=== PATIENT | female | born 1945 | race African-American/Black ===

== ENCOUNTER → 2018-06-20 12:40 | Outpatient (CLI) | payer OTHER, SELFPAY ==
--- NOTE | 2018-06-20 | DI.MG.S_ITS ---
BILATERAL DIGITAL SCREENING MAMMOGRAM 3D/2D WITH CAD: 06/20/2018 CLINICAL: Routine screening. Baseline exam. Comparison is made to exam dated: 07/05/2007 [facility]. The tissue of both breasts is predominantly fatty. Current study was also evaluated with a Computer Aided Detection (CAD) system. No significant masses, calcifications, or other findings are seen in either breast. There has been no significant interval change. IMPRESSION: NEGATIVE There is no mammographic evidence of malignancy. A 1 year screening mammogram is recommended. This exam was interpreted at Station ID: [id number]. NOTE: For mammograms, a report in lay terms will be sent to the patient. Approximately 15% of breast malignancies will not be visualized mammographically. In the management of a palpable breast mass, a negative mammogram must not discourage biopsy of a clinically suspicious lesion. Electronically Signed By: Candice brown/puma:06/23/2018 09:22:38 letter sent: Normal Exam ACR BI-RADS Category 1: Negative 3341F
== END ==
PROVIDERS: Family Provider Internal Medicine; PCP Internal Medicine; Visit Provider Internal Medicine
DX: Z12.31 Encounter for screening mammogram for malignant neoplasm of breast (principal); M85.851 Other specified disorders of bone density and structure, right thigh; Z78.0 Asymptomatic menopausal state; E11.9 Type 2 diabetes mellitus without complications
CPT/HCPCS: 77063; 77067; 77080

== ENCOUNTER 2018-09-06 16:55 | Emergency (ER) | payer OTHER, SELFPAY ==
[2018-09-06 17:05] VITALS: BP 128/73; PULSE 94; RESP 14; TEMP 36.7; O2SAT 99; BMI 27.4
--- NOTE | 2018-09-06 17:09 | DI.RAD.S_ITS ---
PROCEDURE: XR RIBS LT MIN 3V W CXR1V INDICATIONS: left rib pain after fall TECHNIQUE: 3 views of the left ribs were acquired, along with a single view chest. COMPARISON: None. FINDINGS: Surgical changes and devices: Surgical clips are noted in the left upper abdomen. A surgical suture line is also noted in the left upper abdomen. Bones and chest wall: Possible nondisplaced acute fractures involving the anterolateral margins of the left ninth, and 10th ribs. No suspicious bony lesions. Overlying soft tissues appear unremarkable. Lungs and pleura: No pleural effusions or pneumothorax. Lungs appear clear. Mediastinum: Mediastinal contours appear normal. Heart size is normal. IMPRESSION: 1. Chest without acute cardiopulmonary abnormalities. 2. Possible nondisplaced fractures involving the anterolateral margin of the left ninth and 10th ribs. Dictated by: Vitaliy Pak M.D. on 09/06/2018 at 18:00 Approved by: Vitaliy Pak M.D. on 09/06/2018 at 18:03
--- NOTE | 2018-09-06 20:57 | ED.SOB ---
HPI - SOB/Dyspnea General Chief Complaint: Shortness of Breath/Dyspnea Stated Complaint: Fall this morning, left rib pain, hurts to breath Time Seen by Provider: 09/06/18 20:16 Related Data Home Medications Medication Instructions Recorded Confirmed lisinopril 40 mg PO QDAY #0 12/15/09 aspirin 81 mg PO QDAY #0 12/11/15 escitalopram oxalate 20 mg PO QDAY #30 tab 12/11/15 lamotrigine 100 mg PO QDAY #0 12/11/15 trazodone 50 mg PO HSP #0 12/11/15 amlodipine 10 mg PO HS #0 08/07/17 cholecalciferol (vitamin D3) 2 cap PO QDAY #0 08/07/17 [Vitamin D3] lorazepam 1 tab PO HSP PRN #0 08/07/17 multivitamin [Multiple Vitamins] 1 tab PO QDAY #0 08/07/17 nystatin [Nystop] 100,000 unit TOPICAL BID #0 08/07/17 sennosides [senna] 8.6 mg PO PRN #0 08/07/17 tobramycin-dexamethasone [TobraDex] 1 drp OPHTH Q6H #0 08/07/17 Allergies Allergy/AdvReac Type Severity Reaction Status Date / Time No Known Drug Allergies Allergy Verified 09/06/18 17:04 [facility] Medical History (Updated 09/06/18 @ 20:58 by Patti Dawson PA-C) Cervical spinal stenosis (Chronic) Cervical radiculopathy (Acute) Social History Smoking Status: Unknown if ever smoked Social History Smoking Status: Unknown if ever smoked Exam Initial Vital Signs Initial Vital Signs: Vital Signs Temperature 98.1 F 09/06/18 17:05 Pulse Rate 94 H 09/06/18 17:05 Respiratory Rate 14 09/06/18 17:05 Blood Pressure 128/73 09/06/18 17:05 Pulse Oximetry 99 09/06/18 17:05 Course Orders Ordered: ED Orders 09/06/18 17:09 XR ribs LT min 3V w CXR1V Stat Vital Signs - 8 hr 09/06/18 17:05 Temperature 98.1 F Pulse Rate 94 H Respiratory Rate 14 Blood Pressure 128/73 Pulse Oximetry 99 Discharge Plan Departure Prescriptions: No Action lisinopril 40 MG tablet 40 mg PO QDAY Qty: 0 RF: 0 lamotrigine 200 MG tablet 100 mg PO QDAY Qty: 0 RF: 0 trazodone 50 MG tablet 50 mg PO HSP Qty: 0 RF: 0 aspirin 81 MG tablet,delayed release (DR/EC) 81 mg PO QDAY Qty: 0 RF: 0 escitalopram oxalate 20 MG tablet 20 mg PO QDAY Qty: 30 RF: 0 amlodipine 10 MG tablet 10 mg PO HS Qty: 0 RF: 0 multivitamin [Multiple Vitamins] 1 EACH tablet 1 tab PO QDAY Qty: 0 RF: 0 lorazepam 0.5 MG tablet 1 tab PO HSP PRNQty: 0 RF: 0 nystatin [Nystop] 30 GM powder 100,000 unit Topical BID Qty: 0 RF: 0 sennosides [senna] 8.6 MG tablet 8.6 mg PO PRN Qty: 0 RF: 0 cholecalciferol (vitamin D3) [Vitamin D3] 2,000 UNIT capsule 2 cap PO QDAY Qty: 0 RF: 0 tobramycin-dexamethasone [TobraDex] 5 ML drops,suspension 1 drp OPHTH Q6H Qty: 0 RF: 0
--- NOTE | 2018-09-06 21:15 | ED_ITS ---
HPI - SOB/Dyspnea General Chief Complaint: Shortness of Breath/Dyspnea Stated Complaint: Fall this morning, left rib pain, hurts to breath Time Seen by Provider: 09/06/18 20:16 Source: patient and family Mode of arrival: ambulatory Limitations: no limitations History of Present Illness 73-year-old female here for evaluation of left-sided rib pain. She states that earlier today she was sitting on the toilet and had an event where she fell off the toilet hitting her left side. She states that throughout the day her left side is becoming more more painful. She states she has been having these episodes where she passes out for some time now. She has seen her primary provider. She is currently on Keppra for concern that these are seizures. She is not currently driving. Her did not witness this event today however has seen these events in the past. She he states that she starts to smack her lips and then becomes unconscious for a short period of time. Patient states that the episode that happened to her today is very similar to the episodes that have been happening to her for some time now. She reports no other injuries from the event. Related Data Home Medications Medication Instructions Recorded Confirmed lisinopril 40 mg PO QDAY #0 12/15/09 aspirin 81 mg PO QDAY #0 12/11/15 escitalopram oxalate 20 mg PO QDAY #30 tab 12/11/15 lamotrigine 100 mg PO QDAY #0 12/11/15 trazodone 50 mg PO HSP #0 12/11/15 amlodipine 10 mg PO HS #0 08/07/17 cholecalciferol (vitamin D3) 2 cap PO QDAY #0 08/07/17 [Vitamin D3] lorazepam 1 tab PO HSP PRN #0 08/07/17 multivitamin [Multiple Vitamins] 1 tab PO QDAY #0 08/07/17 nystatin [Nystop] 100,000 unit TOPICAL BID #0 08/07/17 sennosides [senna] 8.6 mg PO PRN #0 08/07/17 tobramycin-dexamethasone [TobraDex] 1 drp OPHTH Q6H #0 08/07/17 Allergies Allergy/AdvReac Type Severity Reaction Status Date / Time No Known Drug Allergies Allergy Verified 09/06/18 17:04 Review of Systems Constitutional Denies headache(s) ENT Ears, Nose, Mouth, and Throat: Denies vertigo, Denies dizziness and Denies headache(s) Cardiovascular Reports chest pain (Left-sided ribs) Respiratory Reports pain on inspiration Gastrointestinal Gastrointestinal: Denies abdominal pain Musculoskeletal Denies myalgias and Denies arthralgias Integumentary/Breasts Denies rash Neurologic Denies vertigo, Denies dizziness and Denies headache(s) Hematologic/Lymphatic Denies easy bleeding and Denies easy bruising COUNT INCLUDES THE [facility] Medical History (Updated 09/07/18 @ 01:16 by Trell Garcia DO) Cervical spinal stenosis (Chronic) Cervical radiculopathy (Acute) Seizure-like activity (Acute) Social History Smoking Status: Unknown if ever smoked Social History Smoking Status: Unknown if ever smoked Exam Initial Vital Signs Initial Vital Signs: Vital Signs Temperature 98.1 F 09/06/18 17:05 Pulse Rate 94 H 09/06/18 17:05 Respiratory Rate 14 09/06/18 17:05 Blood Pressure 128/73 09/06/18 17:05 Pulse Oximetry 99 09/06/18 17:05 Const General: cooperative, comfortable, well developed, well groomed and No acute distress Orientation: alert, awake and oriented x3 [facility] Head: normal to inspection, normocephalic, atraumatic, No abrasion, No contusion, No laceration, No scalp lesion and No scalp tenderness Ears: hearing grossly normal bilaterally Nose: external nose normal Face and sinus: normal facial exam Chest Chest: tenderness (Left-sided chest wall) Resp Effort & Inspection: normal respiratory effort Auscultation: clear to auscultation bilaterally GI Inspection: non-distended Palpation: soft and No firm Back/Spine/Pelvis Cervical Spine: cervical muscular tenderness, No cervical spinal tenderness and No step off deformity Thoracic/Lumbar Spine: No thoracic spinal tenderness and No lumbar spinal tenderness Skin Lesions: no lesions Rashes: no rashes Neuro General: alert, awake and oriented x3 Cognition: normal cognition Speech: speech normal Extrem General: normal to inspection and capillary refill normal Course Orders Ordered: ED Orders 09/06/18 17:09 XR ribs LT min 3V w CXR1V Stat Discontinued Medications Acetaminophen/Codeine Phosphate (Tylenol #3) 1 tab PO NOW ONE Stop: 09/06/18 21:42 Last Admin: 09/06/18 22:11 Dose: Not Given Acetaminophen/Codeine Phosphate (Tylenol #3 Prepack) 1 bottle MISC SEEINSTR ONE Stop: 09/06/18 22:01 Last Admin: 09/06/18 22:04 Dose: 1 bottle Vital Signs - 8 hr 09/06/18 21:28 Temperature 97.4 F L Pulse Rate 76 Respiratory Rate 18 Blood Pressure [Right Arm] 165/76 H Pulse Oximetry 100 MDM - SOB/Dyspnea Imaging Data Rib x-rays: Radiologist's impression: [address] [id number] XRay Report Signed Patient: George Stratton GMR#: [id number] : 5Acct:[id number] Age/Sex: 73 / FDate of Service: 09/06/18 Loc: ED Accession Number: [id number] Procedure: XR ribs LT min 3V w CXR1V Ordering Provider: Carmella Alanis D.O. PROCEDURE: XR RIBS LT MIN 3V W CXR1V INDICATIONS: left rib pain after fall TECHNIQUE: 3 views of the left ribs were acquired, along with a single view chest. COMPARISON: None. FINDINGS: Surgical changes and devices: Surgical clips are noted in the left upper abdomen. A surgical suture line is also noted in the left upper abdomen. Bones and chest wall: Possible nondisplaced acute fractures involving the anterolateral margins of the left ninth, and 10th ribs. No suspicious bony lesions. Overlying soft tissues appear unremarkable. Lungs and pleura: No pleural effusions or pneumothorax. Lungs appear clear. Mediastinum: Mediastinal contours appear normal. Heart size is normal. IMPRESSION: 1. Chest without acute cardiopulmonary abnormalities. 2. Possible nondisplaced fractures involving the anterolateral margin of the left ninth and 10th ribs. Dictated by: Vitaliy Pak M.D. on 09/06/2018 at 18:00 Approved by: Vitaliy Pak M.D. on 09/06/2018 at 18:03 [facility] Narrative Medical decision making narrative: Patient with left-sided rib fractures. Not in any respiratory distress. No underlying lung pathology. She does have left- sided paraspinal neck tenderness but no midline tenderness. Hold on further radiologic studies for now. The episode that she has today she has been seen for in the past. It seems very similar to her prior events which have been diagnosed as seizure-like activity and for which she is on seizure medications. She is not currently driving. Patient initially declined the offer for any pain medication over will send home with a prepack for Tylenol number threes. We did discuss the importance of her avoiding falling. We did discuss the importance of her taking big deep breaths to avoid pneumonia. She was given return precautions and follow-up instructions. Both her and her who is at bedside expressed understanding and agreement this plan. Discharge Plan Departure Patient Disposition: Home Clinical Impression: Multiple rib fractures Qualifiers: Encounter type: initial encounter Fracture type: closed Laterality: left Qualified Code(s): S22.42XA - Multiple fractures of ribs, left side, initial encounter for closed fracture Discharge Date/Time: 09/06/18 22:12 Interventions: ED Discharge Assessment Last Done: 09/06/18 22:11 Instructions: DI for Rib Fracture Activity Restrictions/Additional Instructions: You need to use the pain medication as needed so that you can take the big deep breath like we discussed. Continue all of her medications as directed. On Saturday morning contact her primary doctor for a follow-up. Return to the emergency department for any new or worsening symptoms Prescriptions: No Action lisinopril 40 MG tablet 40 mg PO QDAY Qty: 0 RF: 0 lamotrigine 200 MG tablet 100 mg PO QDAY Qty: 0 RF: 0 trazodone 50 MG tablet 50 mg PO HSP Qty: 0 RF: 0 aspirin 81 MG tablet,delayed release (DR/EC) 81 mg PO QDAY Qty: 0 RF: 0 escitalopram oxalate 20 MG tablet 20 mg PO QDAY Qty: 30 RF: 0 amlodipine 10 MG tablet 10 mg PO HS Qty: 0 RF: 0 multivitamin [Multiple Vitamins] 1 EACH tablet 1 tab PO QDAY Qty: 0 RF: 0 lorazepam 0.5 MG tablet 1 tab PO HSP PRNQty: 0 RF: 0 nystatin [Nystop] 30 GM powder 100,000 unit Topical BID Qty: 0 RF: 0 sennosides [senna] 8.6 MG tablet 8.6 mg PO PRN Qty: 0 RF: 0 cholecalciferol (vitamin D3) [Vitamin D3] 2,000 UNIT capsule 2 cap PO QDAY Qty: 0 RF: 0 tobramycin-dexamethasone [TobraDex] 5 ML drops,suspension 1 drp OPHTH Q6H Qty: 0 RF: 0 Referrals: Solis Quan MD [Primary Care Provider] -
[2018-09-06 21:28] VITALS: BP 165/76; PULSE 76; RESP 18; TEMP 36.3; O2SAT 100
[2018-09-06] MEDS: CODEINE/APAP 30/300 PREPACK 1 BOTTLE MISC (22:04)
== END 2018-09-06 22:12 | disposition home or self-care (01) ==
PROVIDERS: Emergency Provider Emergency Medicine; PCP Internal Medicine
DX: S22.42XA Multiple fractures of ribs, left side, initial encounter for closed fracture (principal); R55 Syncope and collapse; W18.12XA Fall from or off toilet with subsequent striking against object, initial encounter
CPT/HCPCS: 71101; 99283

== ENCOUNTER → 2019-05-26 10:58 | Outpatient (CLI) | payer OTHER, SELFPAY ==
--- NOTE | 2019-05-26 11:01 | DI.RAD.S_ITS ---
PROCEDURE: XR SHOULDER LT MIN 2V INDICATIONS: l shoulder pain from fall on 05/20/2019 TECHNIQUE: 3 views of the shoulder were acquired. COMPARISON: [facility], , SHOULDER MINIMUM 2 VIEW LEFT, 08/07/2011, 11:56. FINDINGS: Bones: No fractures or dislocations. Mild to moderate acromioclavicular joint and glenohumeral joint osteoarthritic changes are seen. No suspicious bony lesions. Visualized ribs appear intact. Soft tissues: No suspicious soft tissue calcifications. IMPRESSION: Mild to moderate left shoulder joint osteoarthritis. No acute fracture or dislocation. Dictated by: Ramo Stephen M.D. on 05/26/2019 at 11:39 Approved by: Ramo Stephen M.D. on 05/26/2019 at 11:41
== END ==
PROVIDERS: Family Provider Internal Medicine; PCP Internal Medicine; Visit Provider Physician Assistant
DX: M25.512 Pain in left shoulder (principal); M19.012 Primary osteoarthritis, left shoulder
CPT/HCPCS: 73030

== ENCOUNTER → 2019-06-12 10:15 | Outpatient (CLI) | payer OTHER, SELFPAY ==
--- NOTE | 2019-06-12 10:17 | DI.RAD.S_ITS ---
PROCEDURE: XR HIP W PEL IF DONE RT 2V INDICATIONS: pain to R buttock/groin post fall, r/o pelvic fx TECHNIQUE: AP pelvis with lateral view(s) of the right hip(s). COMPARISON: None. FINDINGS: Bones: No fractures or dislocations. Pelvic ring appears intact. No suspicious bony lesions. Age-appropriate lower lumbar spine degenerative changes are noted. There is moderate superior joint space narrowing seen of the right hip, with associated remodeling changes with subchondral sclerosis and osteophyte formation. Milder degenerative changes are seen of the left. Soft tissues: The visualized bowel gas pattern is normal. No suspicious soft tissue calcifications. Pelvic soft tissue postoperative changes are seen. IMPRESSION: No displaced fractures are seen on these plain films. If there is focal tenderness, or other clinical concern for a fracture not seen on these images in this patient with a given history of trauma, please consider a dedicated CT or a short-term followup plain film series (in 1-2 weeks) for further evaluation. Dictated by: Tyree Billy M.D. on 06/12/2019 at 10:05 Approved by: Tyree Billy M.D. on 06/12/2019 at 10:06
--- NOTE | 2019-06-12 10:17 | DI.RAD.S_ITS ---
PROCEDURE: XR LUMBAR SPINE 2-3V INDICATIONS: pain to R buttock/groin post fall, r/o pelvic fx TECHNIQUE: 3 views of the lumbar spine were acquired. COMPARISON: [facility], CT, ABDOMEN/PELVIS WITH CONTRAST, 05/04/2014, 8:06. [facility], CR, XR HIP W PEL IF DONE RT 2V, 06/12/2019, 10:26. FINDINGS: Bones: Mild dextroconvex scoliotic curvature is seen. There is minimal retrolisthesis seen at the L2-L3 and the L3-L4 levels. No displaced fractures are seen. No suspicious lytic or blastic lesions are seen. 5 nonrib-bearing, lumbar type vertebral bodies are seen. There is moderate to severe disc space narrowing seen at L1-L2, L2-L3, and L3-L4. Endplate irregularity and sclerosis are seen, which are most prominent at L2-L3. Lower lumbar spine facet arthropathy is seen. Soft tissues: Overlying bowel gas pattern is normal. No suspicious soft tissue calcifications. Postoperative changes are seen, including sutures and anastomotic staple lines. IMPRESSION: No acute plain film abnormality is seen. If there is point tenderness (or other clinical suspicion for a fracture not seen on these images) then a dedicated CT could be considered for further evaluation, as clinically appropriate. Degenerative changes are seen, which are overall most prominent at L2-L3. Dextroconvex scoliotic curvature. Dictated by: Tyree Billy M.D. on 06/12/2019 at 10:01 Approved by: Tyree Billy M.D. on 06/12/2019 at 10:04
== END ==
PROVIDERS: Family Provider Internal Medicine; PCP Internal Medicine; Visit Provider Physician Assistant
DX: M25.551 Pain in right hip (principal); M47.816 Spondylosis without myelopathy or radiculopathy, lumbar region; M41.86 Other forms of scoliosis, lumbar region
CPT/HCPCS: 72100; 73502

== ENCOUNTER → 2019-07-22 12:55 | Outpatient (CLI) | payer OTHER, SELFPAY ==
--- NOTE | 2019-07-22 | DI.MRI.S_ITS ---
PROCEDURE: MR HEAD/BRAIN WO/W CON INDICATIONS: Unspecified convulsions TECHNIQUE: Noncontrast axial T1 spin echo, axial T2 fast spin echo, sagittal and axial FLAIR, coronal T2 fast spin echo, axial gradient echo, axial diffusion and ADC through the brain. After the administration of contrast, axial and coronal 3D VIBE or T1 spin echo with fat saturation through the brain. COMPARISON: None. FINDINGS: Image quality: Excellent. CSF Spaces: Basal cisterns are patent. No extra-axial fluid collections. Ventricles are normal in size and shape. Brain: No midline shift. No intracranial bleeds or masses. No abnormal intracranial enhancement. The brainstem appears normal. Diffusion-weighted images demonstrate no acute ischemic insults. No chronic ischemic insults. Normal intravascular flow voids are present. Skull and face: Calvarial marrow is normal in signal. Orbits appear normal. Sinuses: Sinuses and mastoids appear clear. IMPRESSION: Source of seizure activity is not seen, no trauma from seizure is found. The brain parenchyma shows no area of microvascular atherosclerotic change, or recent/prior stroke. No mass appears present. No inflammation is seen. Dictated by: Fadi Elias M.D. on 07/22/2019 at 15:15 Approved by: Fadi Elias M.D. on 07/22/2019 at 15:15
== END ==
PROVIDERS: Family Provider Internal Medicine; PCP Internal Medicine; Referring Provider Internal Medicine; Visit Provider Internal Medicine
DX: R56.9 Unspecified convulsions (principal)
CPT/HCPCS: 70553; A9579

== ENCOUNTER → 2020-02-05 06:58 | Outpatient (CLI) | payer MEDICARE, SELFPAY ==
--- NOTE | 2020-02-05 | DI.MRI.S_ITS ---
PROCEDURE: MR CERVICAL SPINE WO CON INDICATIONS: UNSPECIFIED CONVULSIONS, ABNORMAL REFLEXES TECHNIQUE: Noncontrast sagittal T1 spin echo and T2 fast spin echo, sagittal STIR, foraminal oblique sagittal T2 fast spin echo, and axial gradient echo or T2 fast spin echo through the cervical spine. COMPARISON: None. FINDINGS: Image quality: Excellent. Alignment and Curvature: There is normal bony alignment. Bone Marrow: Marrow demonstrates normal overall signal. Spinal Cord: Visualized spinal cord has normal size and signal. No cerebellar tonsillar herniation. Paraspinous Soft Tissues: No paravertebral masses. Prevertebral soft tissues are normal in thickness. C2-C3: Minimal disc height reduction, no spinal or foraminal stenosis. C3-C4: [id number]-ew-[id number] degenerative disc height reduction, posterior mild disc bulge is present. This effaces CSF from the anterior thecal sac, and slightly distorts the cord. Mild spinal stenosis. Facet osteoarthritis is present bilaterally with mild narrowing of the neural foramen but no definite bilateral nerve root impingement. C4-C5: Cgho-vb-gwbovrdn degenerative disc height reduction, posterior disc bulge is mild but effaces CSF from the thecal sac. Facet osteoarthritis is greater on the right than the left with mild to moderate right and mild left foraminal stenosis and overall concentric mild spinal stenosis. C5-C6: The degenerative changes at this level are sqro-hd-huvqivaq with a posterior mild disc bulge. Facet osteoarthritis is relatively mild at this level, symmetric, with only a mild degree of foraminal stenosis. There is potential for C6 nerve root impingement E coli, based on this finding. Mild concentric spinal stenosis. C6-C7: Normal appearance. C7-T1: Normal appearance. IMPRESSION: The upper cervical spine and especially at C3-4 shows both degenerative disc disease and facet osteoarthritis contributing to spinal and foraminal stenosis as discussed in detail by level in the body of the report above. A disc herniation is not found. Dictated by: Fadi Elias M.D. on 02/05/2020 at 17:17 Approved by: Fadi Elias M.D. on 02/05/2020 at 17:23
--- NOTE | 2020-02-05 | DI.MRI.S_ITS ---
PROCEDURE: MR HEAD/BRAIN WO/W CON INDICATIONS: Unspecified convulsions,Abnormal reflex TECHNIQUE: Noncontrast axial T1 spin echo, axial T2 fast spin echo, sagittal and axial FLAIR, coronal T2 fast spin echo, axial gradient echo, axial diffusion and ADC through the brain. After the administration of contrast, axial and coronal 3D VIBE or T1 spin echo with fat saturation through the brain. COMPARISON: [facility], , MR HEAD/BRAIN WO/W CON, 07/22/2019, 13:31. FINDINGS: Image quality: Excellent. CSF Spaces: Basal cisterns are patent. No extra-axial fluid collections. Ventricles are normal in size and shape. Brain: No midline shift. No intracranial bleeds or masses. No abnormal intracranial enhancement. The brainstem appears normal. Diffusion-weighted images demonstrate no acute ischemic insults. No chronic ischemic insults. Normal intravascular flow voids are present. Skull and face: Calvarial marrow is normal in signal. Orbits appear normal. Sinuses: Sinuses and mastoids appear clear. IMPRESSION: Source of seizure activity is not found, no trauma from seizure is seen. No acute disease. No contrast enhancing abnormality is identified by this examination. Dictated by: Fadi Elias M.D. on 02/05/2020 at 9:14 Approved by: Fadi Elias M.D. on 02/05/2020 at 9:15
== END ==
PROVIDERS: Family Provider Internal Medicine; PCP Internal Medicine; Referring Provider Psychiatry & Neurology Neurology; Visit Provider Psychiatry & Neurology Neurology
DX: R56.9 Unspecified convulsions (principal); R29.2 Abnormal reflex; R29.898 Other symptoms and signs involving the musculoskeletal system; M50.31 Other cervical disc degeneration, high cervical region; M48.02 Spinal stenosis, cervical region; M47.812 Spondylosis without myelopathy or radiculopathy, cervical region
CPT/HCPCS: 70553; 72141

== ENCOUNTER → 2020-02-22 19:23 | Outpatient (ROUT) | payer MEDICARE, SELFPAY ==
[2020-02-22 20:03] LABS: Add Manual Diff / Slide Review NO; Basophils Absolute Auto 0 /uL (0-100); Basophils Percent Auto 0.8 % (0-2); Eosinophils Absolute Auto 300 /uL (0-450); Eosinophils Percent Auto 5.7 % (2-4); Hematocrit 33.8 % (36-46); Hemoglobin 11.5 g/dL (12.0-16.0); Lymphocytes Absolute Auto 1500 /uL (1100-4500); Lymphocytes Percent Auto 27.7 % (25-40); Mean Corpuscular HGB Conc 33.9 % (30-36); Mean Corpuscular Hemoglobin 32.3 PG (26-34); Mean Corpuscular Volume 95.2 fL (80-100); Monocytes Absolute Auto 400 /uL (0-900); Monocytes Percent Auto 6.7 % (3-14); Neutrophils Absolute Auto 3200 /uL (1500-7000); Neutrophils Percent Auto 59.1 % (50-75); Platelet Count 344 X10^3/uL (150-400); Red Blood Cell Count 3.54 X10^6/uL (4.0-5.2); White Blood Cell Count 5.3 X10^3/uL (4.5-11.0)
[2020-02-22 20:09] LABS: Aspartate Aminotransferase 21 IU/L (14-36); BUN Creatinine Ratio 29.7 (6-22); Blood Urea Nitrogen 22 mg/dL (7-17); Calcium 10.9 mg/dL (8.4-10.2); Carbon Dioxide 28 mmol/L (22-32); Chloride 101 mmol/L (98-107); Cholesterol 169 mg/dL (140-199); Estimated Glomerular Filt Rate > 60.0 mL/min (>60); Glucose 83 mg/dL (80-110); HDL Cholesterol 82 mg/dL (40-60); HEMOLYSIS < 15 (0-50); LDL Cholesterol Calculated 78 mg/dL (<100); Potassium 4.5 mmol/L (3.4-5.1); Sodium 134 mmol/L (137-145); Triglycerides 46 mg/dL (35-150)
[2020-02-22 20:38] LABS: TSH w/ Reflex to FT4 0.46 uIU/mL (0.47-4.68)
[2020-02-22 21:16] LABS: Free T4, Direct Thyroxine 1.22 ng/dL (0.78-2.19)
[2020-02-24 06:36] LABS: Parathyroid Hormone Int 60 pg/mL (15-65)
== END ==
PROVIDERS: Family Provider Internal Medicine; PCP Internal Medicine; Visit Provider Internal Medicine
DX: I10 Essential (primary) hypertension (principal); E78.2 Mixed hyperlipidemia; E21.1 Secondary hyperparathyroidism, not elsewhere classified; R56.9 Unspecified convulsions
CPT/HCPCS: 80048; 80061; 83970; 84439; 84443; 84450; 85025

== ENCOUNTER → 2020-07-01 16:08 | Outpatient (CLI) | payer OTHER, SELFPAY ==
--- NOTE | 2020-07-01 | DI.MG.S_ITS ---
BILATERAL DIGITAL SCREENING MAMMOGRAM 3D/2D WITH CAD: 07/01/2020 CLINICAL: Routine screening. Comparison is made to exams dated: 06/20/2018 mammogram and 07/05/2007 mammogram - [facility]. There are scattered fibroglandular elements in both breasts. Current study was also evaluated with a Computer Aided Detection (CAD) system. No significant masses, calcifications, or other findings are seen in either breast. There has been no significant interval change. IMPRESSION: NEGATIVE There is no mammographic evidence of malignancy. A 1 year screening mammogram is recommended. This exam was interpreted at Station ID: [id number]. NOTE: For mammograms, a report in lay terms will be sent to the patient. Approximately 15% of breast malignancies will not be visualized mammographically. In the management of a palpable breast mass, a negative mammogram must not discourage biopsy of a clinically suspicious lesion. Electronically Signed By: Vitaliy marquez/puma:07/01/2020 17:17:04 letter sent: Normal Exam ACR BI-RADS Category 1: Negative 3341F
== END ==
PROVIDERS: Family Provider Internal Medicine; PCP Internal Medicine; Referring Provider Internal Medicine; Visit Provider Internal Medicine
DX: Z12.31 Encounter for screening mammogram for malignant neoplasm of breast (principal)
CPT/HCPCS: 77063; 77067

== ENCOUNTER → 2020-08-31 18:59 | Outpatient (ROUT) | payer MEDICARE, SELFPAY ==
[2020-08-31 19:29] LABS: Add Manual Diff / Slide Review NO; Basophils Absolute Auto 100 /uL (0-100); Eosinophils Absolute Auto 300 /uL (0-450); Eosinophils Percent Auto 5.8 % (2-4); Hematocrit 33.7 % (36-46); Hemoglobin 11.4 g/dL (12.0-16.0); Lymphocytes Absolute Auto 1900 /uL (1100-4500); Mean Corpuscular HGB Conc 33.9 % (30-36); Mean Corpuscular Hemoglobin 32.4 PG (26-34); Mean Corpuscular Volume 95.5 fL (80-100); Monocytes Absolute Auto 500 /uL (0-900); Monocytes Percent Auto 8.2 % (3-14); Neutrophils Absolute Auto 3000 /uL (1500-7000); Platelet Count 378 X10^3/uL (150-400); Red Blood Cell Count 3.53 X10^6/uL (4.0-5.2); White Blood Cell Count 5.8 X10^3/uL (4.5-11.0)
[2020-08-31 19:41] LABS: BUN Creatinine Ratio 27.3 (6-22); Blood Urea Nitrogen 24 mg/dL (7-17); Calcium 11.2 mg/dL (8.4-10.2); Carbon Dioxide 26 mmol/L (22-32); Chloride 103 mmol/L (98-107); Cholesterol 172 mg/dL (140-199); Estimated Glomerular Filt Rate > 60.0 mL/min (>60); Glucose 99 mg/dL (80-110); HDL Cholesterol 76 mg/dL (40-60); HEMOLYSIS < 15 (0-50); LDL Cholesterol Calculated 87 mg/dL (<100); Potassium 4.4 mmol/L (3.4-5.1); Sodium 135 mmol/L (137-145); Triglycerides 44 mg/dL (35-150)
== END ==
PROVIDERS: Family Provider Internal Medicine; PCP Internal Medicine; Visit Provider Internal Medicine
DX: I10 Essential (primary) hypertension (principal); E78.2 Mixed hyperlipidemia
CPT/HCPCS: 80048; 80061; 85025

== ENCOUNTER → 2022-08-10 10:37 | Outpatient (CLI) | payer MEDICARE, SELFPAY ==
--- NOTE | 2022-08-10 | DI.RAD.S_ITS ---
P a ROCEDURE: XR LUMBAR SPINE 2-3V INDICATIONS: BACK PAIN TECHNIQUE: 3 views of the lumbar spine were acquired. COMPARISON: [facility], CR, XR LUMBAR SPINE 2-3V, 06/12/2019, 10:26. FINDINGS: Bones: 5 uxh-bgw-fynyufv vertebrae are present. There is stable appearance of dextro scoliosis of the lumbar spine. No acute compression fractures.. No suspicious lesions. Severe multilevel lumbar spondylitic changes are seen. Severe lower lumbar facet arthropathy most prominent at L5-S1. Progression of degenerative endplate changes and disc space loss at L1-2 and L2-3. Moderate disc space loss at L3-4. Stable appearance of minimal retrolisthesis of L2 on 3 and L3 on L4. Soft tissues: Overlying bowel gas pattern is normal. No suspicious soft tissue calcifications. Vascular calcifications are noted. Numerous surgical clips project over the left upper abdomen. Multiple surgical anastomotic suture lines noted in the mid and upper abdomen. IMPRESSION: Lumbar spine without acute osseous abnormalities. Severe multilevel lumbar spondylosis demonstrating interval progression compared to 2019 evaluation. Findings are most severe at L1-2 and L2-3. Dictated by: Vitaliy Pak M.D. on 08/10/2022 at 15:41 Approved by: Vitaliy Pak M.D. on 08/10/2022 at 15:47
== END ==
PROVIDERS: Family Provider Internal Medicine; PCP Student in an Organized Health Care Education/Training Program; Referring Provider Student in an Organized Health Care Education/Training Program; Visit Provider Student in an Organized Health Care Education/Training Program
DX: M47.816 Spondylosis without myelopathy or radiculopathy, lumbar region (principal); M54.50 Low back pain, unspecified
CPT/HCPCS: 72100

== ENCOUNTER → 2022-09-18 08:20 | Outpatient (CLI) | payer OTHER, SELFPAY ==
--- NOTE | 2022-09-18 | DI.MRI.S_ITS ---
PROCEDURE: MR LUMBAR SPINE WO CON INDICATIONS: Radiculopathy, lumbar region TECHNIQUE: Noncontrast sagittal T1 spin echo and T2 fast echo, sagittal STIR, and T2 fast spin echo through the lumbar spine. In cases with scoliosis, additional coronal T2 fast spin echo may be performed. COMPARISON: [facility], CT, ABDOMEN/PELVIS WITH CONTRAST, 05/04/2014, 8:06. [facility], CR, XR LUMBAR SPINE WITH OBLIQUES PLUS FLEXION EXTENSION, 08/28/2022, 9:08. FINDINGS: Image quality: This examination is limited by involuntary motion artifact. Alignment and Curvature: Mild dextroconvex scoliotic curvature is seen. Minimal retrolisthesis can be seen at L1-L2, L2-L3, and L3-L4. Mild anterolisthesis is seen at L5-S1. Bone Marrow: Marrow is of normal overall signal. No acute vertebral body compression fractures. Spinal Cord: Conus medullaris terminates at the L1 level. Visualized cord demonstrates normal signal and size. Paraspinous Soft Tissues: No paravertebral masses. Bilateral renal cysts and a splenic cyst can be seen. T12-L1: Normal appearance. L1-L2: Moderate to severe loss of disc height and disc signal can be seen. Reactive marrow endplate changes are seen which are hypointense on T1-weighted imaging and hyperintense on T2 weighted imaging, which is most consistent with edema (Modic type I changes). Moderate disc bulge is seen, with a central/right disc protrusion. Posteriorly projected endplate osteophytes are seen. Bridging endplate osteophytes are seen. Mild facet joint hypertrophy is seen. There is at least moderate right-sided and moderate left-sided neural foraminal narrowing. Moderate central canal narrowing is seen. L2-L3: Moderate loss of disc height is seen. Loss of disc signal is seen. Reactive marrow endplate changes are seen, which are hyperintense on T1-weighted and T2-weighted imaging and most consistent with fatty metaplasia (Modic type II changes). Moderate generalized disc bulge is seen, which is eccentric to the left. There is a left foraminal disc protrusion seen. Mild facet joint hypertrophy is seen. There is moderate right-sided and moderate to severe left-sided neural foraminal narrowing. There is a degree of compression seen upon the exiting left L2 nerve root. Mild central canal narrowing is seen. L3-L4: Moderate loss of disc height is seen. Loss of disc signal is seen. Reactive marrow endplate changes are seen which are hypointense on T1-weighted imaging and hyperintense on T2 weighted imaging, which is most consistent with edema (Modic type I changes). Moderate generalized disc bulge is seen. Mild facet joint hypertrophy is seen. There is moderate to severe bilateral neural foraminal narrowing seen, with an associated a degree of compression seen upon the exiting nerve roots. Moderate central canal narrowing is seen. L4-L5: The disc height is well-preserved. Loss of disc signal is seen at this level. Moderate generalized disc bulge is seen. Moderate to prominent facet hypertrophy is seen. Associated hypertrophy of the ligamentum flavum can be seen. There is moderate to severe right-sided neural foraminal narrowing, with a degree of compression upon the exiting right L4 nerve root. Moderate left-sided neural foraminal narrowing is seen. At least moderate central canal narrowing is seen, as on series 6, image 26. L5-S1: The disc height and disk signal are relatively well-preserved. Mild disc bulge is seen, which is eccentric to the left. Moderate to prominent facet hypertrophy is seen. There is at least moderate right-sided and moderate to severe left-sided neural foraminal narrowing. There is a degree of compression seen upon the exiting nerve roots. Minimal central canal narrowing is seen. 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 Several sites of significant neural foraminal narrowing can be seen, with associated exiting nerve root compression. Moderate central canal narrowing can be seen at L1-L2 and L3-L4. Additional findings: Bilateral renal cysts Splenic cyst Dictated by: Tyree Billy M.D. on 09/18/2022 at 17:43 Approved by: Tyree Billy M.D. on 09/18/2022 at 17:49
== END ==
PROVIDERS: Family Provider Internal Medicine; PCP Student in an Organized Health Care Education/Training Program; Referring Provider Physical Medicine & Rehabilitation Pain Medicine; Visit Provider Physical Medicine & Rehabilitation Pain Medicine
DX: M47.26 Other spondylosis with radiculopathy, lumbar region (principal); M47.27 Other spondylosis with radiculopathy, lumbosacral region; M48.061 Spinal stenosis, lumbar region without neurogenic claudication; M48.07 Spinal stenosis, lumbosacral region; N28.1 Cyst of kidney, acquired; D73.4 Cyst of spleen
CPT/HCPCS: 72148

== ENCOUNTER → 2023-02-01 09:21 | Outpatient (CLI) | payer MEDICARE, SELFPAY ==
--- NOTE | 2023-02-01 09:23 | DI.RAD.S_ITS ---
PROCEDURE: XR SHOULDER LT MIN 2V INDICATIONS: Shoulder pain TECHNIQUE: 3 views of the shoulder were acquired. COMPARISON: [facility], [facility], XR SHOULDER LT MIN 2V, 05/26/2019, 11:03. [facility], , SHOULDER MINIMUM 2 VIEW LEFT, 08/07/2011, 11:56. FINDINGS: Bones: No fractures or dislocations. No suspicious bony lesions. Visualized ribs appear intact. No significant glenohumeral joint space narrowing or osteophytosis. Joint space narrowing with osteophytosis of the acromioclavicular joint. Soft tissues: No suspicious soft tissue calcifications. IMPRESSION: No significant glenohumeral osteoarthritis. Please see dedicated clavicle imaging for further discussion. Dictated by: Ben Jeffery M.D. on 02/01/2023 at 10:49 Approved by: Ben Jeffery M.D. on 02/01/2023 at 10:50
--- NOTE | 2023-02-01 09:23 | DI.RAD.S_ITS ---
PROCEDURE: XR CLAVICLE LT INDICATIONS: Shoulder pain TECHNIQUE: 2 views of the clavicle were acquired. COMPARISON: None. FINDINGS: Bones: No fractures or dislocations. No suspicious bony lesions. Acromioclavicular joint space narrowing with associated osteophytosis. Soft tissues: No suspicious soft tissue calcifications. 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 Dictated by: Ben Jeffery M.D. on 02/01/2023 at 10:49 Approved by: Ben Jeffery M.D. on 02/01/2023 at 10:49
== END ==
PROVIDERS: Family Provider Internal Medicine; PCP Student in an Organized Health Care Education/Training Program; Referring Provider Nurse Practitioner Family; Visit Provider Nurse Practitioner Family
DX: S46.912A Strain of unspecified muscle, fascia and tendon at shoulder and upper arm level, left arm, initial encounter (principal); M19.012 Primary osteoarthritis, left shoulder; M95.8 Other specified acquired deformities of musculoskeletal system
CPT/HCPCS: 73000; 73030